=== PATIENT | female | born 1975 | race African-American/Black ===

== ENCOUNTER 2017-03-06 19:32 | Emergency (ER) | payer OTHER ==
[2017-03-06] MEDS ORDERED: Ketorolac Tromethamine 30 MG/ML VIAL ONE (21:31)
[2017-03-06] MEDS ORDERED: diphenhydrAMINE 50 MG/ML VIAL ONE (21:31)
[2017-03-06] MEDS ORDERED: Metoclopramide HCl 10 MG/2 ML VIAL ONE (21:31)
== END 2017-03-06 23:12 | disposition home or self-care (01) ==
LOC: ERS 19:32
DX: G43.909 Migraine, unspecified, not intractable, without status migrainosus (principal); F17.200 Nicotine dependence, unspecified, uncomplicated
CPT/HCPCS: 96361; 96374; 96375; J1200; J1885; J2765

== ENCOUNTER 2017-03-30 03:14 | Emergency (ER) | payer OTHER ==
[2017-03-30] MEDS ORDERED: Ketorolac Tromethamine 60 MG/2 ML VIAL ONE (04:08)
== END 2017-03-30 04:41 | disposition home or self-care (01) ==
LOC: ERS 03:14
DX: S39.012A Strain of muscle, fascia and tendon of lower back, initial encounter (principal); J30.9 Allergic rhinitis, unspecified; F17.200 Nicotine dependence, unspecified, uncomplicated; Z71.6 Tobacco abuse counseling; X58.XXXA Exposure to other specified factors, initial encounter
CPT/HCPCS: 96372; 99406; J1885

== ENCOUNTER 2017-10-25 11:05 | Emergency (ER) | payer OTHER ==
--- NOTE | 2017-10-25 13:15 | RAD ---
2 VIEWS CHEST: Date: 10/25/17 PROVIDED CLINICAL HISTORY: Cough. FINDINGS: Comparison with 10/23/09. Cardiac and mediastinal silhouette within normal limits. Lungs appear clear. No pleural fluid or pneu mothorax apparent. IMPRESSION: No evidence for an acute cardiopulmonary process. POS: [facility]
--- NOTE | 2017-10-30 16:35 | EKG ---
Test Reason : Blood Pressure : / mmHG Vent. Rate : 089 BPM Atrial Rate : 089 BPM P-R Int : 170 ms QRS Dur : 084 ms QT Int : 366 ms P-R-T Axes : 049 004 009 degrees QTc Int : 445 ms Normal sinus rhythm Normal ECG Confirmed by BOWEN MOON ([id number]), editorial manager EVANGELIST MI ([id number]) on 10/30/2017 4:35:03 PM Referred By: Confirmed By:BOWEN MOON
== END 2017-10-25 12:11 | disposition home or self-care (01) ==
LOC: ERS 11:05
DX: J40 Bronchitis, not specified as acute or chronic (principal)
CPT/HCPCS: 71046; 93005

== ENCOUNTER 2018-01-02 15:55 | Emergency (ER) | payer OTHER ==
[2018-01-02] MEDS ORDERED: Fluorescein Opthalmic Strip ONE (16:43)
[2018-01-02] MEDS ORDERED: Proparacaine 0.5% Opth 15 ML BOT ONE (16:43)
== END 2018-01-02 17:22 | disposition home or self-care (01) ==
LOC: ERS 15:55
DX: H10.9 Unspecified conjunctivitis (principal)
CPT/HCPCS: 99282

== ENCOUNTER 2018-08-17 11:09 | Outpatient (CLI) | payer MEDICAID ==
--- NOTE | 2018-08-17 15:28 | MMO ---
Bilateral MAMMO Bilat Screen [facility]. CLINICAL HISTORY: Patient is 43 years old and is seen for screening. The patient has no family history of breast cancer. The patient has no personal history of cancer. VIEWS: The views performed were: bilateral craniocaudal and bilateral mediolateral oblique. This study has been interpreted with the assistance of computer-aided detection. MAMMOGRAM FINDINGS: There are scattered fibroglandular densities. Indeterminate nodule outer mid right breast. Recommend diagnostic right breast exam. In the left breast, there are no suspicious masses, calcifications or areas of architectural distortion. IMPRESSION: FINDING IN THE RIGHT BREAST REQUIRES ADDITIONAL EVALUATION. ADDITIONAL IMAGING. ACR BI-RADS Category 0 - Incomplete: Need additional imaging evaluation. [facility] will notify the patient of the need for additional imaging services. MAMMOGRAPHY NOTE: 1. A negative mammogram report should not delay a biopsy if a dominant of clinically suspicious mass is present. 2. Approximately 10% to 15% of breast cancers are not detected by mammography. 3. Adenosis and dense breasts may obscure an underlying neoplasm. Reported by: RORY RIOS MD Electonically Signed: [id number]
== END 2018-08-17 11:10 | disposition home or self-care (01) ==
LOC: SCSMAMMO 11:09
PROVIDERS: ATTEND Family Medicine
DX: Z12.31 Encounter for screening mammogram for malignant neoplasm of breast (principal)
CPT/HCPCS: 77067

== ENCOUNTER 2018-08-24 13:05 | Outpatient (CLI) | payer MEDICAID ==
--- NOTE | 2018-08-24 13:38 | MMO ---
Right Breast MAMMO Unilat Diag DDI RT+CHRISTINE. CLINICAL HISTORY: Patient is 43 years old and is seen for diagnostic exam. The patient has no family history of breast cancer. The patient has no personal history of cancer. VIEWS: The views performed were: right craniocaudal spot compression with tomosynthesis; right mediolateral oblique spot compression with tomosynthesis; and right mediolateral with tomosynthesis. FILMS COMPARED: The present examination has been compared to prior imaging studies performed at [facility] on 08/17/2018, and at [facility] on 08/24/2018. MAMMOGRAM FINDINGS: There are scattered fibroglandular densities. There is a round mass with circumscribed margins seen in the outer region of the right breast. The mass was shown to be a lymph node on ultrasound. There are no suspicious masses, suspicious calcifications, or new areas of architectural distortion. IMPRESSION: THERE IS NO MAMMOGRAPHIC EVIDENCE OF MALIGNANCY. A ROUTINE FOLLOW-UP MAMMOGRAM IN 1 YEAR IS RECOMMENDED. THE RESULTS OF THIS EXAM WERE SENT TO THE PATIENT. ACR BI-RADS Category 2 - Benign finding MAMMOGRAPHY NOTE: 1. A negative mammogram report should not delay a biopsy if a dominant of clinically suspicious mass is present. 2. Approximately 10% to 15% of breast cancers are not detected by mammography. 3. Adenosis and dense breasts may obscure an underlying neoplasm. Reported by: JOSH MILLS MD Electonically Signed: [id number]
--- NOTE | 2018-08-24 13:51 | ULT ---
RIGHT BREAST ULTRASOUND: 08/24/18 COMPARISON: 08/24/18 and 08/17/18. HISTORY: Superficial well circumscribed mass at the 9 o'clock position of the right breast on mammography. TECHNIQUE: Multiplanar ramírez scale and color Doppler images were obtained in a right breast ultrasound. FINDINGS: A well circumscribed hypoechoic or isoechoic mass with a hyperechoic center is seen at the 9 o'clock position of the right breast approximately 8 cm from the nipple. This measures 6 mm in greatest dimen mynor and corresponds to the mammographic abnormality and likely represents an intramammary lymph node . No suspicious shadowing or mass is seen. IMPRESSION: BIRADS 2: Benign Finding(s) Routine annual screening mammography (for women over age 40). POS: [facility]
== END 2018-08-24 13:06 | disposition home or self-care (01) ==
LOC: BICMAMMO 13:05
PROVIDERS: ATTEND Family Medicine
DX: N63.10 Unspecified lump in the right breast, unspecified quadrant (principal)
CPT/HCPCS: G0279

== ENCOUNTER 2018-08-26 05:46 | Emergency (ER) | payer MEDICAID, SELFPAY ==
[2018-08-26] MEDS ORDERED: Diazepam 5 MG TAB ONE (06:20)
[2018-08-26] MEDS ORDERED: Ketorolac Tromethamine 30 MG/ML VIAL ONE (06:21)
[2018-08-26 06:42] LABS: Bilirubin Negative (Negative); Blood, Urine Negative (Negative); Clarity Clear (Clear); Glucose, Urine (Dipstick) Normal (Negative); Leukocyte Negative Leu/uL (Negative); Nitrite Negative (Negative); Protein, Urine (Dipstick) Negative (Neg-Trace); Urobilinogen Normal mg/dL (Less than 2)
[2018-08-26 06:46] LABS: Pregnancy Test - Urine (BHCG) Negative (Negative); Pregu Control Background? CLEAR/WHITE (CLR/WHITE); Pregu Control Bar Appear? YES (CONTROL BAR); Specific Gravity 1.004 (1.002-1.036)
== END 2018-08-26 07:41 | disposition home or self-care (01) ==
LOC: ERS 05:46
DX: M54.5 Low back pain (principal); G43.909 Migraine, unspecified, not intractable, without status migrainosus; Z79.899 Other long term (current) drug therapy
CPT/HCPCS: 81003; 81025; 96372; 99283; J1885

== ENCOUNTER 2018-11-22 05:09 | Emergency (ER) | payer MEDICAID, SELFPAY ==
--- NOTE | 2018-11-22 07:32 | RAD ---
EXAM: Chest 2 views: HISTORY: Cough and vomiting COMPARISON: 10/25/2017 FINDINGS: There is a normal-sized cardiomediastinal silhouette. There is no evidence of consolidation, mass, or pleural effusion. The bones are unremarkable. IMPRESSION: No evidence of acute cardiopulmonary disease
== END 2018-11-22 07:12 | disposition home or self-care (01) ==
LOC: ERS 05:09
DX: J18.9 Pneumonia, unspecified organism (principal); R11.2 Nausea with vomiting, unspecified; G43.909 Migraine, unspecified, not intractable, without status migrainosus; I10 Essential (primary) hypertension; E11.9 Type 2 diabetes mellitus without complications; Z79.84 Long term (current) use of oral hypoglycemic drugs; Z79.899 Other long term (current) drug therapy
CPT/HCPCS: 71046

== ENCOUNTER 2019-10-09 17:04 | Emergency (ER) | payer SELFPAY ==
[2019-10-09 17:47] LABS: #Basophils 0.1 thou/uL (0.0-0.2); #Eosinphils 0.3 thou/uL (0.0-0.7); #Monocytes 0.9 thou/uL (0.11-0.59); #Neutrophils 7.8 thou/uL (1.40-6.50); %Basophils 0.6 % (0.0-1.0); %Lymphocytes 30.7 % (21.0-51.0); %Monocytes 6.7 % (0.0-10.0); %Neutrophils 60.1 % (42.0-75.0); Hemoglobin 13.6 g/dL (12.0-16.0); Mean Corpuscular HGB CONC 33.5 g/dL (32.0-36.0); Mean Corpuscular Hemoglobin 29.3 pg (27.0-31.0); Mean Corpuscular Volume 87.6 fL (78.0-98.0); Mean Platelet Volume 7.4 fL (7.4-10.4); Platelet Count 319 thou/uL (130-400); Red Blood Cell (RBC) Count 4.63 mill/uL (4.20-5.40)
[2019-10-09 18:10] LABS: ALT (SGPT) 15 U/L (8-55); AST (SGOT) 12 U/L (5-34); Alkaline Phosphatase 87 U/L (40-110); Anion Gap 14 mmol/L (10-20); BUN (Urea Nitrogen) 8 mg/dL (7.0-18.7); Bilirubin, Total 0.2 mg/dL (0.2-1.2); Calc. Creatinine Clearance 0 mL/min (70-130); Calcium 8.8 mg/dL (7.8-10.44); Carbon Dioxide 22 mmol/L (22-29); Chloride 104 mmol/L (98-107); Estimated GFR-MDRD Greater than 90; Globulin 3.1 g/dL (2.4-3.5); Glucose 112 mg/dL (70-105); Lipase 32 U/L (8-78); Potassium 3.6 mmol/L (3.5-5.1); Protein, Total 7.1 g/dL (6.0-8.3); Sodium 136 mmol/L (136-145)
[2019-10-09] MEDS ORDERED: Ondansetron ODT 4 MG TAB ONE (18:40)
[2019-10-09] MEDS ORDERED: Nitrofurantoin Monohyd/M-Cryst 100 MG CAP PO SCH (18:45)
[2019-10-09 18:47] LABS: Bilirubin Negative (Negative); Blood, Urine Negative (Negative); Clarity Clear (Clear); Glucose, Urine (Dipstick) Normal (Negative); Ketone, Urine Negative (Negative); Leukocyte Negative Leu/uL (Negative); Nitrite Negative (Negative); Protein, Urine (Dipstick) Negative (Neg-Trace); Specific Gravity, Urine 1.007 (1.002-1.036); Urobilinogen Normal mg/dL (Less than 2)
== END 2019-10-09 19:38 | disposition home or self-care (01) ==
LOC: ERS 17:04
DX: R30.0 Dysuria (principal); I10 Essential (primary) hypertension; R10.9 Unspecified abdominal pain; G43.909 Migraine, unspecified, not intractable, without status migrainosus; E11.9 Type 2 diabetes mellitus without complications; F17.210 Nicotine dependence, cigarettes, uncomplicated; Z79.84 Long term (current) use of oral hypoglycemic drugs; Z79.899 Other long term (current) drug therapy
CPT/HCPCS: 36415; 80053; 81003; 83690; 85025; 99284; Q0162

== ENCOUNTER 2020-07-18 20:06 | Emergency (ER) | payer MEDICAID, SELFPAY ==
[2020-07-18] MEDS ORDERED: Ketorolac Tromethamine 30 MG/ML VIAL ONE (21:07)
== END 2020-07-18 21:31 | disposition home or self-care (01) ==
LOC: ERS 20:06
DX: M79.662 Pain in left lower leg (principal); M25.531 Pain in right wrist; E11.9 Type 2 diabetes mellitus without complications; I10 Essential (primary) hypertension; Z79.899 Other long term (current) drug therapy
CPT/HCPCS: 96372; J1885

== ENCOUNTER 2020-08-02 06:03 | Emergency (ER) | payer MEDICAID ==
[2020-08-02] MEDS ORDERED: Naproxen 500 MG TAB ONE (06:36)
== END 2020-08-02 06:43 | disposition home or self-care (01) ==
LOC: ERS 06:03
DX: M25.531 Pain in right wrist (principal); E11.9 Type 2 diabetes mellitus without complications; I10 Essential (primary) hypertension; Z79.899 Other long term (current) drug therapy; Z79.84 Long term (current) use of oral hypoglycemic drugs
CPT/HCPCS: 99281

== ENCOUNTER 2020-11-05 15:34 | Outpatient (CLI) | payer BC | END 2020-11-05 15:35 | disposition home or self-care (01) | LOC: BICMAMMO 15:34 | PROVIDERS: ATTEND Family Medicine | DX: Z12.31 Encounter for screening mammogram for malignant neoplasm of breast (principal); M25.531 Pain in right wrist; M25.562 Pain in left knee | CPT/HCPCS: 77063; 77067 ==

== ENCOUNTER 2021-04-07 16:30 | Emergency (ER) | payer BC ==
[2021-04-07] MEDS ORDERED: Ondansetron PF 4 MG/2 ML Vial ONE (17:08)
[2021-04-07 17:30] LABS: #Basophils 0.1 thou/uL (0.0-0.2); #Monocytes 0.4 thou/uL (0.11-0.59); #Neutrophils 9.4 thou/uL (1.40-6.50); %Basophils 0.6 % (0.0-1.0); %Eosinophils 0.2 % (0.0-10.0); %Lymphocytes 9.5 % (21.0-51.0); %Monocytes 3.9 % (0.0-10.0); %Neutrophils 85.9 % (42.0-75.0); Hemoglobin 14.9 g/dL (12.0-16.0); Mean Corpuscular HGB CONC 33.2 g/dL (32.0-36.0); Mean Corpuscular Volume 90.5 fL (78.0-98.0); Mean Platelet Volume 7.1 fL (7.4-10.4); Platelet Count 308 thou/uL (130-400); RBC Distribution Width 12.8 % (11.5-14.5); Red Blood Cell (RBC) Count 4.95 mill/uL (4.20-5.40); White Blood Cell (WBC) Count 10.9 thou/uL (4.8-10.8)
[2021-04-07 17:38] LABS: BHCG - Serum Negative (NEGATIVE); Pregs Control Background? CLEAR/WHITE (CLR/WHITE); Pregs Control Bar Appear? YES (CONTROL BAR)
[2021-04-07 17:47] LABS: ALT (SGPT) 19 U/L (8-55); AST (SGOT) 16 U/L (5-34); Albumin 3.9 g/dL (3.5-5.0); Alkaline Phosphatase 79 U/L (40-110); Anion Gap 11 mmol/L (10-20); BUN (Urea Nitrogen) 15 mg/dL (7.0-18.7); Bilirubin, Total 0.4 mg/dL (0.2-1.2); Calc. Creatinine Clearance 0 mL/min (70-130); Calcium 8.7 mg/dL (7.8-10.44); Carbon Dioxide 24 mmol/L (22-29); Chloride 104 mmol/L (98-107); Globulin 3.1 g/dL (2.4-3.5); Glucose 140 mg/dL (70-105); Lipase 9 U/L (8-78); Potassium 3.9 mmol/L (3.5-5.1); Sodium 135 mmol/L (136-145)
[2021-04-07] MEDS ORDERED: Ketorolac Tromethamine 30 MG/ML VIAL ONE (18:09)
[2021-04-07] MEDS ORDERED: Acetaminophen 500 MG TAB ONE (18:09)
[2021-04-07 23:38] LABS: SARS-CoV-2 PCR by NAA Not Detected (NotDetected)
== END 2021-04-07 18:55 | disposition home or self-care (01) ==
LOC: ERS 16:30
DX: R11.2 Nausea with vomiting, unspecified (principal); M79.10 Myalgia, unspecified site; E11.9 Type 2 diabetes mellitus without complications; I10 Essential (primary) hypertension; Z79.899 Other long term (current) drug therapy; Z79.84 Long term (current) use of oral hypoglycemic drugs; Z20.822 Contact with and (suspected) exposure to COVID-19
CPT/HCPCS: 36415; 80053; 83690; 84703; 85025; 96374; 96375; J1885; J2405; U0003; U0005

== ENCOUNTER 2021-12-16 18:42 | Emergency (ER) | payer BC | END 2021-12-16 20:45 | disposition home or self-care (01) | LOC: ERS 18:42 | DX: J01.90 Acute sinusitis, unspecified (principal); B96.89 Other specified bacterial agents as the cause of diseases classified elsewhere; E11.9 Type 2 diabetes mellitus without complications; I10 Essential (primary) hypertension; Z79.84 Long term (current) use of oral hypoglycemic drugs | CPT/HCPCS: 87804; 99283 ==